=== PATIENT | male | born 1960 | race Caucasian/White ===

== ENCOUNTER → 2019-11-27 | Outpatient (CLI) | payer MEDICARE ==
[2019-11-27 12:02] LABS: ALANINE AMINOTRANSFERASE 26 U/L (0-55); ALBUMIN 4.1 GM/DL (3.2-4.5); ALKALINE PHOSPHATASE 82 U/L (40-136); BILIRUBIN,TOTAL 0.2 MG/DL (0.1-1.0); BUN/CREATININE RATIO 20; CALCIUM 9.3 MG/DL (8.5-10.1); CARBON DIOXIDE 22 MMOL/L (21-32); CHLORIDE 107 MMOL/L (98-107); CREATININE SERUM 0.93 MG/DL (0.60-1.30); GFR ESTIMATED > 60; GLUCOSE 83 MG/DL (70-105); POTASSIUM 4.2 MMOL/L (3.6-5.0); SODIUM 141 MMOL/L (135-145); TOTAL PROTEIN 7.6 GM/DL (6.4-8.2)
--- NOTE | 2019-11-27 16:27 | Diagnostic Imaging Report ---
EXAMINATION: Right foot radiographs, 3 views. COMPARISON: None. HISTORY: 59-year-old male, right foot ulcer. FINDINGS: There is a large normal variant os trigonum. There are vascular related calcifications. There is no identified tibiotalar joint effusion. There is a tiny calcaneal heel spur. There is no identified radiopaque foreign body. There is no cortical or aggressive bone destruction. There is no identified acute fracture. The joint spaces are well preserved. There is a normal variant os navicularis. IMPRESSION: 1. No radiographic evidence of osteomyelitis or other acute osseous abnormality. 2. No identified radiopaque foreign body. Dictated by: Dictated on workstation # [id number]
== END ==
LOC: RAD 11:22
PROVIDERS: ATTEND Surgery
DX: E11.621 Type 2 diabetes mellitus with foot ulcer (principal); E11.42 Type 2 diabetes mellitus with diabetic polyneuropathy; I70.235 Atherosclerosis of native arteries of right leg with ulceration of other part of foot; L97.512 Non-pressure chronic ulcer of other part of right foot with fat layer exposed; T65.222A Toxic effect of tobacco cigarettes, intentional self-harm, initial encounter; F17.218 Nicotine dependence, cigarettes, with other nicotine-induced disorders
CPT/HCPCS: 36415; 73630; 80053

== ENCOUNTER → 2019-11-27 | Outpatient (CLI) | payer MEDICARE | LOC: WOUNDCARE 08:10 | PROVIDERS: ATTEND Surgery | DX: E11.621 Type 2 diabetes mellitus with foot ulcer (principal); E11.42 Type 2 diabetes mellitus with diabetic polyneuropathy; L97.512 Non-pressure chronic ulcer of other part of right foot with fat layer exposed; I70.235 Atherosclerosis of native arteries of right leg with ulceration of other part of foot; T65.222A Toxic effect of tobacco cigarettes, intentional self-harm, initial encounter; F17.218 Nicotine dependence, cigarettes, with other nicotine-induced disorders | CPT/HCPCS: 11042; 87070; 87075; 87077; 87186; 87205; G0463 ==

== ENCOUNTER → 2019-12-04 | Outpatient (CLI) | payer MEDICARE | LOC: WOUNDCARE 08:28 | PROVIDERS: ATTEND Surgery | DX: L97.512 Non-pressure chronic ulcer of other part of right foot with fat layer exposed (principal); E11.621 Type 2 diabetes mellitus with foot ulcer; E11.52 Type 2 diabetes mellitus with diabetic peripheral angiopathy with gangrene; E11.42 Type 2 diabetes mellitus with diabetic polyneuropathy; T65.222A Toxic effect of tobacco cigarettes, intentional self-harm, initial encounter; F17.218 Nicotine dependence, cigarettes, with other nicotine-induced disorders | CPT/HCPCS: 11042; A6260; G0463 ==

== ENCOUNTER → 2019-12-11 | Outpatient (CLI) | payer MEDICARE | LOC: WOUNDCARE 09:52 | PROVIDERS: ATTEND Surgery | DX: L97.512 Non-pressure chronic ulcer of other part of right foot with fat layer exposed (principal); E11.621 Type 2 diabetes mellitus with foot ulcer; E11.42 Type 2 diabetes mellitus with diabetic polyneuropathy; T65.222A Toxic effect of tobacco cigarettes, intentional self-harm, initial encounter; F17.218 Nicotine dependence, cigarettes, with other nicotine-induced disorders | CPT/HCPCS: 11042; G0463 ==

== ENCOUNTER → 2019-12-18 | Outpatient (CLI) | payer MEDICARE | LOC: WOUNDCARE 09:48 | PROVIDERS: ATTEND Surgery | DX: E11.621 Type 2 diabetes mellitus with foot ulcer (principal); E11.42 Type 2 diabetes mellitus with diabetic polyneuropathy; L97.512 Non-pressure chronic ulcer of other part of right foot with fat layer exposed; T65.222A Toxic effect of tobacco cigarettes, intentional self-harm, initial encounter; F17.218 Nicotine dependence, cigarettes, with other nicotine-induced disorders | CPT/HCPCS: 99212 ==

== ENCOUNTER → 2020-02-11 | Outpatient (CLI) | payer MEDICARE | LOC: WOUNDCARE 13:53 | PROVIDERS: ATTEND Surgery | DX: E11.621 Type 2 diabetes mellitus with foot ulcer (principal); E11.42 Type 2 diabetes mellitus with diabetic polyneuropathy; T65.222D Toxic effect of tobacco cigarettes, intentional self-harm, subsequent encounter; L97.512 Non-pressure chronic ulcer of other part of right foot with fat layer exposed; F17.218 Nicotine dependence, cigarettes, with other nicotine-induced disorders | CPT/HCPCS: 11042; A6197; G0463 ==

== ENCOUNTER → 2020-02-18 | Outpatient (CLI) | payer MEDICARE | LOC: WOUNDCARE 11:16 | PROVIDERS: ATTEND Surgery | DX: E11.621 Type 2 diabetes mellitus with foot ulcer (principal); E11.42 Type 2 diabetes mellitus with diabetic polyneuropathy; I96 Gangrene, not elsewhere classified; L97.512 Non-pressure chronic ulcer of other part of right foot with fat layer exposed; T65.222D Toxic effect of tobacco cigarettes, intentional self-harm, subsequent encounter; F17.218 Nicotine dependence, cigarettes, with other nicotine-induced disorders | CPT/HCPCS: 11042; G0463 ==

== ENCOUNTER → 2020-02-25 | Outpatient (CLI) | payer MEDICARE | LOC: WOUNDCARE 10:48 | PROVIDERS: ATTEND Surgery | DX: E11.42 Type 2 diabetes mellitus with diabetic polyneuropathy (principal); E11.621 Type 2 diabetes mellitus with foot ulcer; I96 Gangrene, not elsewhere classified; L97.512 Non-pressure chronic ulcer of other part of right foot with fat layer exposed; T65.222D Toxic effect of tobacco cigarettes, intentional self-harm, subsequent encounter; F17.218 Nicotine dependence, cigarettes, with other nicotine-induced disorders | CPT/HCPCS: 11042; G0463 ==

== ENCOUNTER → 2020-03-03 | Outpatient (CLI) | payer MEDICARE | LOC: WOUNDCARE 11:11 | PROVIDERS: ATTEND Surgery | DX: L97.512 Non-pressure chronic ulcer of other part of right foot with fat layer exposed (principal); E11.621 Type 2 diabetes mellitus with foot ulcer; E11.42 Type 2 diabetes mellitus with diabetic polyneuropathy; F17.218 Nicotine dependence, cigarettes, with other nicotine-induced disorders; T65.222A Toxic effect of tobacco cigarettes, intentional self-harm, initial encounter | CPT/HCPCS: 11042; G0463 ==

== ENCOUNTER → 2020-03-10 | Outpatient (CLI) | payer MEDICARE ==
[~2020-03-10] MED LIST: ACHD5005 PO; ALPR0.5T7 PO; ATOR40TA70 PO; FAMO20TA3 PO; GABA300C PO; INSU100I51 SQ; INSU200I4 SQ; LIRA0.6P SQ; METF-399 PO; PARO40TA3 PO
== END ==
LOC: WOUNDCARE 10:45
PROVIDERS: ATTEND Orthopaedic Surgery Hand Surgery
DX: E11.621 Type 2 diabetes mellitus with foot ulcer (principal); E11.42 Type 2 diabetes mellitus with diabetic polyneuropathy; L97.512 Non-pressure chronic ulcer of other part of right foot with fat layer exposed; T65.222D Toxic effect of tobacco cigarettes, intentional self-harm, subsequent encounter; E11.52 Type 2 diabetes mellitus with diabetic peripheral angiopathy with gangrene; F17.218 Nicotine dependence, cigarettes, with other nicotine-induced disorders
CPT/HCPCS: 11042; A6197; G0463

== ENCOUNTER 2020-03-11 08:45 | Outpatient (RCR) | payer MEDICARE ==
[~2020-03-11] VITALS: Ht 175.3 cm; Wt 116.7 kg
[2020-03-11] MEDS ORDERED: ALPR0.5T7 PO (09:49)
[2020-03-11] MEDS ORDERED: METF-399 PO (09:49)
[2020-03-11] MEDS ORDERED: PARO40TA3 PO (09:49)
[2020-03-11] MEDS ORDERED: GABA300C PO (09:49)
[2020-03-11] MEDS ORDERED: LIRA0.6P SQ (09:49)
[2020-03-11] MEDS ORDERED: INSU100I51 SQ (09:49)
[2020-03-11] MEDS ORDERED: FAMO20TA3 PO (09:49)
[2020-03-11] MEDS ORDERED: ACHD5005 PO (09:49)
[2020-03-11] MEDS ORDERED: ATOR40TA70 PO (09:49)
[2020-03-11] MEDS ORDERED: INSU200I4 SQ (09:49)
== END 2020-03-11 15:00 | disposition home or self-care (01) ==
LOC: PREOP 08:45
PROVIDERS: ATTEND Orthopaedic Surgery
DX: Z01.818 Encounter for other preprocedural examination (principal); S46.012A Strain of muscle(s) and tendon(s) of the rotator cuff of left shoulder, initial encounter

== ENCOUNTER 2020-03-17 06:49 | Day surgery (SDC) | payer OTHER, MEDICARE ==
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
[2020-03-17] VITALS (11 sets, daily range): BP systolic 88–153; BP diastolic 48–82
[~2020-03-17] VITALS: Ht 175.3 cm; Wt 116.7 kg
[2020-03-17] MEDS ORDERED: morphine PF (DURAMORPH) 10 MG/10 ML AMP ONE (07:01)
[2020-03-17] MEDS ORDERED: BUPIVACAINE 0.25% 30 ML (SENSORCAINE) VIAL ONE ×2 (07:02→07:45)
[2020-03-17] MEDS: LACTATED RINGERS 1,000 ML IV PRN ×2 (07:10→09:06)
[2020-03-17] MEDS ORDERED: oxyCODONE/APAP 5/325MG (PERCOCET 5) TABLET PO PRN (07:15)
[2020-03-17] MEDS ORDERED: ceFAZolin INJECTION 1,000 MG in WATER (STERILE) FOR INJECTION 10 ML IV ONE (07:15)
[2020-03-17] MEDS ORDERED: WATER (STERILE) FOR INJECTION 10 ML ONE (07:22)
[2020-03-17] MEDS ORDERED: ceFAZolin INJECTION 1,000 MG ONE (07:22)
--- NOTE | 2020-03-17 07:23 | Progress Note-Pre Operative ---
Pre-Operative Progress Note H&P Reviewed The H&P was reviewed, patient examined and no changes noted. Date Seen by Provider: Mar 17, 2020 Time Seen by Provider: 07:11 Date H&P Reviewed: Mar 17, 2020 Time H&P Reviewed: 07:10 Pre-Operative Diagnosis: left rotator cuff tear TARA PACK MD Mar 17, 2020 07:23
--- NOTE | 2020-03-17 07:24 | Progress Note-Post Operative ---
Post-Operative Progess Note Surgeon (s)/Respiratory Tech (s) Surgeon TARA PACK MD Respiratory Tech: Christopher Kothari Pre-Operative Diagnosis left rotator cuff tear Post-Operative Diagnosis left rotator cuff tear and SLAP Procedure & Operative Findings Date of Procedure 03/17/20 Procedure Performed/Findings left shoulder arthroscopic biceps tenotomy, acromioplasty and open rotator cuff repair Anesthesia Type GETA Estimated Blood Loss Estimated blood loss (mL): minimal Specimens/Packing Specimens Removed none Packing: none TARA PACK MD Mar 17, 2020 07:24
[2020-03-17] MEDS ORDERED: CATHETER FLUSH 10 ML SYR IV PRN (07:30)
[2020-03-17] MEDS ORDERED: SEVOFLURANE (ULTANE) 15 ML INHAL SOLN ONE (07:38)
[2020-03-17] MEDS ORDERED: NEOSTIGMINE 3 MG/3 ML VIAL ONE (07:38)
[2020-03-17] MEDS ORDERED: proPOfol 200 MG/20 ML (DIPRIVAN) VIAL IV ONE (07:38)
[2020-03-17] MEDS ORDERED: ONDANSETRON 4 MG/2 ML (SDV) Z0FRAN ONE (07:38)
[2020-03-17] MEDS ORDERED: LIDOCAINE PF 2% 5 ML (XYLOCAINE) VIAL ONE (07:38)
[2020-03-17] MEDS ORDERED: ROCURONIUM 10 MG/ML 5 ML SYRINGE IV ONE (07:38)
[2020-03-17] MEDS ORDERED: GLYCOPYRROLATE 0.2 MG/ML (ROBINUL) 2 ML VIAL ONE (07:38)
[2020-03-17] MEDS ORDERED: MIDAZOLAM 2 MG/2 ML (VERSED) VIAL ONE (07:39)
[2020-03-17] MEDS ORDERED: fentaNYL INJECTION 100 MCG/2 ML AMP ONE (07:39)
[2020-03-17] MEDS ORDERED: morphine INJ 10 MG/ML 1ML (SYR OR VIAL) IVP ONE (09:15)
[2020-03-17] MEDS ORDERED: MEPERIDINE (DEMEROL) INJ 50 MG/ML IVP ONE (09:15)
[2020-03-17] MEDS ORDERED: ONDANSETRON 4 MG/2 ML (SDV) Z0FRAN IVP PRN (09:15)
[2020-03-17] MEDS ORDERED: fentaNYL INJECTION 100 MCG/2 ML AMP IVP ONE (09:15)
[2020-03-17] MEDS ORDERED: SUCCINYLCHOLINE INJ 100 MG/5 ML SYR/VIAL ONE (09:20)
[2020-03-17] MEDS ORDERED: PHENYLEPHRINE 100 MCG/ML 10 ML (ANESTHESIA) SYR ONE (09:20)
[2020-03-17] MEDS ORDERED: OXYC-471 PO (11:16)
--- NOTE | 2020-03-17 12:02 | Anesthesia-General Post-Op ---
General Patient Condition Mental Status/LOC: Same as Preop Cardiovascular: Satisfactory Nausea/Vomiting: Absent Respiratory: Satisfactory Pain: Controlled Complications: Absent Post Op Complications Complications None Follow Up Care/Instructions Patient Instructions None needed. Anesthesia/Patient Condition Patient Condition Patient is doing well, no complaints, stable vital signs, no apparent adverse anesthesia problems. No complications reported per nursing. AYANA GAFFNEY CRNA Mar 17, 2020 12:02
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
== END 2020-03-17 12:10 | disposition home or self-care (01) ==
LOC: SDC 06:49
PROVIDERS: ATTEND Orthopaedic Surgery
DX: S43.432A Superior glenoid labrum lesion of left shoulder, initial encounter (principal); M75.102 Unspecified rotator cuff tear or rupture of left shoulder, not specified as traumatic; E78.5 Hyperlipidemia, unspecified; E11.42 Type 2 diabetes mellitus with diabetic polyneuropathy; E11.622 Type 2 diabetes mellitus with other skin ulcer; F17.210 Nicotine dependence, cigarettes, uncomplicated; Z79.84 Long term (current) use of oral hypoglycemic drugs; Z79.899 Other long term (current) drug therapy
CPT/HCPCS: 23412; 29822; 29826; 82962; 87081; C1713

== ENCOUNTER → 2020-03-26 | Outpatient (CLI) | payer MEDICARE ==
[~2020-03-26] MED LIST changes: +OXYC-471 PO
== END ==
LOC: WOUNDCARE 11:31
PROVIDERS: ATTEND Surgery
DX: E11.621 Type 2 diabetes mellitus with foot ulcer (principal); E11.42 Type 2 diabetes mellitus with diabetic polyneuropathy; I96 Gangrene, not elsewhere classified; L97.512 Non-pressure chronic ulcer of other part of right foot with fat layer exposed; T65.222D Toxic effect of tobacco cigarettes, intentional self-harm, subsequent encounter; F17.218 Nicotine dependence, cigarettes, with other nicotine-induced disorders
CPT/HCPCS: 11042; G0463

== ENCOUNTER → 2020-08-09 | Outpatient (CLI) | payer MEDICARE ==
[~2020-08-09] MED LIST changes: -OXYC-471 PO; +OXYC1TAB11 PO
--- NOTE | 2020-08-09 11:09 | Diagnostic Imaging Report ---
INDICATION: Neck injury from a fall. TECHNIQUE: AP, lateral, and oblique views of the cervical spine were obtained. FINDINGS: The odontoid is intact. The atlantoaxial relationships appear normal. The vertebral body heights and alignment appear normal. The neuroforamina appear widely patent. The intervertebral disc spaces are well-maintained. There is no fracture or prevertebral soft tissue swelling. IMPRESSION: Unremarkable cervical spine. Dictated by: Dictated on workstation # [id number]
== END ==
LOC: RAD FS 10:40
PROVIDERS: ATTEND Nurse Practitioner
DX: S19.9XXA Unspecified injury of neck, initial encounter (principal); W19.XXXA Unspecified fall, initial encounter
CPT/HCPCS: 72050

== ENCOUNTER 2020-10-10 13:02 | Emergency (ER) | payer MEDICARE ==
[~2020-10-10] VITALS: Ht 172 cm; Wt 113.0 kg
[2020-10-10] MEDS ORDERED: DOXYCYCLINE 100 MG (VIBRAMYCIN) TABLET PO SCH (13:30)
[2020-10-10] MEDS ORDERED: CIPROFLOXACIN 500 MG (CIPRO) TABLET PO SCH (13:30)
[2020-10-10] MEDS ORDERED: LIDOCAINE 1% INJ 20 ML 20 ML VIAL INJ ONE (13:30)
--- NOTE | 2020-10-10 13:39 | ED Integumentary General ---
General Chief Complaint: Skin/Wound Problems Stated Complaint: RIGHT FOOT WOUND/PAIN/INFECTION Nursing Triage Note: ARRIVED VIA AMB TO ROOM 08. COMPLAINS OF POSSIBLE RIGHT FOOT INFECTION. Source: patient Exam Limitations: no limitations History of Present Illness Date Seen by Provider: Oct 10, 2020 Time Seen by Provider: 13:36 Initial Comments To ER with complaints of concern for infection to the plantar surface right foot laterally. He has a callus to this area for 2 weeks. He is diabetic. He states that his sugars are well controlled. He noticed a callus about 2 weeks ago and his tried to scrape it off. She noticed there to be a rock embedded within his foot that was removed. He now has an ulcerated area and intense pain. Timing/Duration: constant Severity: moderate Associated Symptoms: denies symptoms Allergies and Home Medications Allergies Coded Allergies: No Known Drug Allergies (Unverified , 03/11/20) Home Medications Alprazolam 0.5 Mg Tablet, 0.5 MG PO HS, (Reported) Atorvastatin Calcium 40 Mg Tablet, 40 MG PO DAILY, (Reported) Ciprofloxacin HCl 250 Mg Tablet, 250 MG PO BID Prescribed by: KERRIE ESTRADA on 10/10/20 1414 Doxycycline Hyclate 100 Mg Tablet, 100 MG PO BID Prescribed by: KERRIE ESTRADA on 10/10/20 1414 Famotidine 20 Mg Tablet, 20 MG PO BID, (Reported) Gabapentin 300 Mg Capsule, 900 MG PO TID, (Reported) Insulin Degludec 200 Unit/1 Ml Insuln.pen, 100 UNIT SQ DAILY, (Reported) Insulin Regular, Human 100 Unit/1 Ml Insuln.pen, 30 UNIT SQ ACHS, (Reported) Liraglutide 0.6 Mg/0.1 Ml Pen.injctr, 1.2 MG SQ DAILY, (Reported) Metformin HCl 1,000 Mg Tablet, 1,000 MG PO BID, (Reported) Oxycodone HCl/Acetaminophen 1 Each Tablet, 1 EACH PO Q4H PRN for PAIN-SEVERE Prescribed by: SHIRA BIRD on 03/17/20 1116 Paroxetine HCl 40 Mg Tablet, 40 MG PO DAILY, (Reported) Patient Home Medication List Home Medication List Reviewed: Yes Review of Systems Review of Systems Constitutional: see HPI EENTM: see HPI Respiratory: no symptoms reported Cardiovascular: no symptoms reported Genitourinary: no symptoms reported Musculoskeletal: no symptoms reported Skin: no symptoms reported Psychiatric/Neurological: No Symptoms Reported Endocrine: No Symptoms Reported Hematologic/Lymphatic: No Symptoms Reported Past Wkrvpfc-Yzefas-Aqizbu Hx Seasonal Allergies Seasonal Allergies: Yes Past Medical History Surgeries: Yes (bilat elbows, bilat CTR, knee scope, ) Coronary Stent Respiratory: Yes Sleep Apnea Currently Using CPAP: Yes Currently Using BIPAP: No Cardiac: Yes (stents x6 last 2016) High Cholesterol Neurological: Yes Neuropathy Genitourinary: No Gastrointestinal: Yes Gastroesophageal Reflux Musculoskeletal: Yes (L shoulder rotator cuff tear, joint pain) Degenerate Disk Disease, Arthritis Endocrine: Yes Diabetes, Insulin dep HEENT: Yes (glasses, dentures) Cancer: No Psychosocial: Yes Sleep Difficulties, Anxiety, Bipolar, Depression Integumentary: Yes (r foot little toe with diabetic ulcer) Blood Disorders: No Physical Exam Vital Signs Vital Signs - First Documented 10/10/20 13:10 Temp 36.7 Pulse 80 Resp 16 B/P (MAP) 180/96 (124) Pulse Ox 96 O2 Delivery Room Air Capillary Refill : Less Than 3 Seconds General Appearance: WD/WN, no apparent distress Respiratory: no respiratory distress, no accessory muscle use Gastrointestinal: normal bowel sounds, non tender, soft Extremities: normal range of motion, non-tender, other (I cannot palpate a dorsalis pedis pulse but the toes have brisk capillary refill normal color the foot is warm and the posterior tibial pulse is +1.) Neurologic/Psychiatric: alert, normal mood/affect, oriented x 3 Skin: normal color, warm/dry Skin Problem Location: other (To the plantar surface over the fourth and fifth distal metatarsal there is a callused area with central ulcerated area that goes about a centimeter deep) Progress/Results/Core Measures Results/Orders Lab Results Laboratory Tests Test 10/10/20 14:16 Range/Units White Blood Count 10.2 4.3-11.0 10^3/uL Red Blood Count 5.05 4.30-5.52 10^6/uL Hemoglobin 15.0 13.3-17.7 g/dL Hematocrit 47 40-54 % Mean Corpuscular Volume 92 80-99 fL Mean Corpuscular Hemoglobin 30 25-34 pg Mean Corpuscular Hemoglobin Concent 32 32-36 g/dL Red Cell Distribution Width 14.0 10.0-14.5 % Platelet Count 292 130-400 10^3/uL Mean Platelet Volume 9.1 9.0-12.2 fL Immature Granulocyte % (Auto) 0 % Neutrophils (%) (Auto) 60 42-75 % Lymphocytes (%) (Auto) 32 12-44 % Monocytes (%) (Auto) 6 0-12 % Eosinophils (%) (Auto) 2 0-10 % Basophils (%) (Auto) 1 0-10 % Neutrophils # (Auto) 6.1 1.8-7.8 10^3/uL Lymphocytes # (Auto) 3.2 1.0-4.0 10^3/uL Monocytes # (Auto) 0.6 0.0-1.0 10^3/uL Eosinophils # (Auto) 0.2 0.0-0.3 10^3/uL Basophils # (Auto) 0.1 0.0-0.1 10^3/uL Immature Granulocyte # (Auto) 0.0 0.0-0.1 10^3/uL Sodium Level 141 135-145 MMOL/L Potassium Level 4.0 3.6-5.0 MMOL/L Chloride Level 108 H 98-107 MMOL/L Carbon Dioxide Level 21 21-32 MMOL/L Anion Gap 12 5-14 MMOL/L Blood Urea Nitrogen 29 H 7-18 MG/DL Creatinine 0.86 0.60-1.30 MG/DL Estimat Glomerular Filtration Rate 90 BUN/Creatinine Ratio 34 Glucose Level 89 70-105 MG/DL Calcium Level 9.9 8.5-10.1 MG/DL Corrected Calcium 9.7 8.5-10.1 MG/DL Total Bilirubin 0.4 0.1-1.0 MG/DL Aspartate Amino Transf (AST/SGOT) 27 5-34 U/L Alanine Aminotransferase (ALT/SGPT) 29 0-55 U/L Alkaline Phosphatase 78 40-136 U/L Total Protein 8.0 6.4-8.2 GM/DL Albumin 4.3 3.2-4.5 GM/DL My Orders Orders - KERRIE ESTRADA SAP BASIS ADMINISTRATOR Cbc With Automated Diff (10/10/20 13:22) Erythrocyte Sedimentation Rate (10/10/20 13:22) Comprehensive Metabolic Panel (10/10/20 13:22) Wound Culture (10/10/20 13:22) Foot, Right, 3 View (10/10/20 13:22) Doxycycline Hyclate Tablet (Vibramycin T (10/10/20 13:30) Ciprofloxacin Tablet (Cipro Tablet) (10/10/20 13:30) Lidocaine 1% Inj 20 Ml (Xylocaine 1% Inj (10/10/20 13:30) Medications Given in ED Current Medications Medications Dose Ordered Sig/Hector Route Start Time Stop Time Status Last Admin Dose Admin Lidocaine HCl 20 ml ONCE ONCE INJ 10/10/20 13:30 10/10/20 13:31 DC 10/10/20 13:30 20 ML Vital Signs/I&O 10/10/20 13:10 Temp 36.7 Pulse 80 Resp 16 B/P (MAP) 180/96 (124) Pulse Ox 96 O2 Delivery Room Air Blood Pressure Mean: 124 Diagnostic Imaging Diagonstic Imaging: Xray Comments No bony erosion no fracture no foreign body Reviewed: Reviewed by Me Departure Communication (Admissions) The callus was removed with 10 blade scalpel Impression Primary Impression: Diabetic ulcer of foot with fat layer exposed Disposition: HOME, SELF-CARE Condition: Stable Departure-Patient Inst. Decision time for Depature: 14:12 Referrals: MARCIA SPRINGER MD (PCP) Primary Care Physician TARA DORANTES MD Patient Instructions: Diabetic Foot Ulcer (DC) Add. Discharge Instructions: 1. Call Dr. Dorantes from wound care Sunday morning. Keep this covered with a gauze dressing. Antibiotics as directed. All discharge instructions reviewed with patient and/or family. Voiced understanding. Scripts Ciprofloxacin HCl (Ciprofloxacin HCl) 250 Mg Tablet 250 MG PO BID, #14 TAB Prov: KERRIE ESTRADA SAP BASIS ADMINISTRATOR 10/10/20 Doxycycline Hyclate (Doxycycline Hyclate) 100 Mg Tablet 100 MG PO BID, #20 TAB 0 Refills Prov: KERRIE ESTRADA SAP BASIS ADMINISTRATOR 10/10/20 KERRIE ESTRADA SAP BASIS ADMINISTRATOR Oct 10, 2020 13:39
[2020-10-10] MEDS ORDERED: CIPR250T3 PO (14:14)
[2020-10-10] MEDS ORDERED: DOXY100T2 PO (14:14)
--- NOTE | 2020-10-10 14:29 | Diagnostic Imaging Report ---
Clinical indications: Patient right foot pain. Possible foot infection. EXAM: X-ray right foot, 3 views. COMPARISON: X-ray right foot dated 11/27/2019. FINDINGS: There is no acute fracture or dislocation. There appears to be a soft tissue wound defect involving the soft tissues adjacent plantar aspect of the MTP joint region seen on lateral view. This finding is new compared to prior study. There is no radiodense foreign object. There is no bony erosive or destructive process. There is hypertrophic calcaneal spur at the plantar attachment again noted. Vascular calcifications are seen. IMPRESSION: 1: There is no acute fracture or dislocation. 2: There is interval development of soft tissue thickening and suspected wound involving the soft tissue adjacent to plantar aspect of the MTP region seen on lateral view. There is no radiodense foreign object. There is no adjacent bony erosive or destructive process. Dictated by: Dictated on workstation # [id number]
[2020-10-10 14:31] LABS: BASOPHILS # (AUTO) 0.1 10^3/uL (0.0-0.1); BASOPHILS % (AUTO) 1 % (0-10); EOSINOPHILS # (AUTO) 0.2 10^3/uL (0.0-0.3); EOSINOPHILS % (AUTO) 2 % (0-10); HEMATOCRIT 47 % (40-54); LYMPHOCYTES # (AUTO) 3.2 10^3/uL (1.0-4.0); LYMPHOCYTES % (AUTO) 32 % (12-44); MEAN CORPUSCULAR HEMOGLOBIN 30 pg (25-34); MEAN CORPUSCULAR HGB CONC 32 g/dL (32-36); MEAN CORPUSCULAR VOLUME 92 fL (80-99); MEAN PLATELET VOLUME 9.1 fL (9.0-12.2); MONOCYTES # (AUTO) 0.6 10^3/uL (0.0-1.0); MONOCYTES % (AUTO) 6 % (0-12); NEUTROPHILS # (AUTO) 6.1 10^3/uL (1.8-7.8); NEUTROPHILS % (AUTO) 60 % (42-75); PLATELET COUNT 292 10^3/uL (130-400); WHITE BLOOD COUNT 10.2 10^3/uL (4.3-11.0)
[2020-10-10 14:43] LABS: ALBUMIN 4.3 GM/DL (3.2-4.5)
[2020-10-10 14:44] LABS: CALCIUM 9.9 MG/DL (8.5-10.1)
[2020-10-10 14:47] LABS: BILIRUBIN,TOTAL 0.4 MG/DL (0.1-1.0)
[2020-10-10 14:49] LABS: CREATININE SERUM 0.86 MG/DL (0.60-1.30)
[2020-10-10 14:56] LABS: ERYTHROCYTE SEDIMENTATION RATE 12 MM/HR (0-30)
[2020-10-10] MEDS ORDERED: ACHD5005 PO (14:58)
[2020-10-10 15:01] VITALS: BP 180/96
== END 2020-10-10 15:01 | disposition home or self-care (01) ==
LOC: EDUNIT# 13:02 → ER 13:06
DX: E11.621 Type 2 diabetes mellitus with foot ulcer (principal); G47.30 Sleep apnea, unspecified; K21.9 Gastro-esophageal reflux disease without esophagitis; E78.00 Pure hypercholesterolemia, unspecified; F32.9 Major depressive disorder, single episode, unspecified; F41.9 Anxiety disorder, unspecified; Z79.899 Other long term (current) drug therapy; Z79.4 Long term (current) use of insulin
CPT/HCPCS: 36415; 73630; 80053; 85025; 85652

== ENCOUNTER → 2020-10-15 | Outpatient (CLI) | payer MEDICARE ==
[~2020-10-15] MED LIST changes: +CIPR250T3 PO; +DOXY100T2 PO
== END ==
LOC: WOUNDCARE 09:25
PROVIDERS: ATTEND Surgery
DX: E11.621 Type 2 diabetes mellitus with foot ulcer (principal); E11.42 Type 2 diabetes mellitus with diabetic polyneuropathy; L97.512 Non-pressure chronic ulcer of other part of right foot with fat layer exposed; I70.235 Atherosclerosis of native arteries of right leg with ulceration of other part of foot
CPT/HCPCS: 11042; 83036; A6197; G0463; 36415

== ENCOUNTER → 2020-10-21 | Outpatient (CLI) | payer MEDICARE | LOC: WOUNDCARE 14:27 | PROVIDERS: ATTEND Surgery | DX: E11.621 Type 2 diabetes mellitus with foot ulcer (principal); I96 Gangrene, not elsewhere classified; E11.42 Type 2 diabetes mellitus with diabetic polyneuropathy; L97.512 Non-pressure chronic ulcer of other part of right foot with fat layer exposed; I70.235 Atherosclerosis of native arteries of right leg with ulceration of other part of foot | CPT/HCPCS: 11042; G0463 ==

== ENCOUNTER → 2020-11-16 | Outpatient (CLI) | payer MEDICARE | LOC: WOUNDCARE 13:24 | PROVIDERS: ATTEND Surgery | DX: E11.621 Type 2 diabetes mellitus with foot ulcer (principal); E11.42 Type 2 diabetes mellitus with diabetic polyneuropathy; L97.512 Non-pressure chronic ulcer of other part of right foot with fat layer exposed; I70.235 Atherosclerosis of native arteries of right leg with ulceration of other part of foot; E11.52 Type 2 diabetes mellitus with diabetic peripheral angiopathy with gangrene | CPT/HCPCS: 11042; G0463; L4360 ==

== ENCOUNTER → 2020-11-23 | Outpatient (CLI) | payer MEDICARE | LOC: WOUNDCARE 12:27 | PROVIDERS: ATTEND Surgery | DX: E11.621 Type 2 diabetes mellitus with foot ulcer (principal); I96 Gangrene, not elsewhere classified; E11.42 Type 2 diabetes mellitus with diabetic polyneuropathy; L97.512 Non-pressure chronic ulcer of other part of right foot with fat layer exposed | CPT/HCPCS: 11042; G0463 ==

== ENCOUNTER → 2020-11-30 | Outpatient (CLI) | payer MEDICARE | LOC: WOUNDCARE 12:00 | PROVIDERS: ATTEND Surgery | DX: E11.621 Type 2 diabetes mellitus with foot ulcer (principal); E11.42 Type 2 diabetes mellitus with diabetic polyneuropathy; L97.512 Non-pressure chronic ulcer of other part of right foot with fat layer exposed | CPT/HCPCS: 99212 ==

== ENCOUNTER → 2021-01-25 | Outpatient (CLI) | payer MEDICARE | LOC: WOUNDCARE 08:53 | PROVIDERS: ATTEND Family Medicine | DX: E11.621 Type 2 diabetes mellitus with foot ulcer (principal); L97.512 Non-pressure chronic ulcer of other part of right foot with fat layer exposed; I70.235 Atherosclerosis of native arteries of right leg with ulceration of other part of foot; L03.115 Cellulitis of right lower limb; M20.41 Other hammer toe(s) (acquired), right foot; I25.10 Atherosclerotic heart disease of native coronary artery without angina pectoris; E66.01 Morbid (severe) obesity due to excess calories | CPT/HCPCS: A6197; G0463; 99214 ==

== ENCOUNTER → 2021-02-02 | Outpatient (CLI) | payer MEDICARE | LOC: WOUNDCARE 14:57 | PROVIDERS: ATTEND Family Medicine | DX: I25.10 Atherosclerotic heart disease of native coronary artery without angina pectoris (principal); M20.41 Other hammer toe(s) (acquired), right foot; E66.01 Morbid (severe) obesity due to excess calories; Z68.38 Body mass index [BMI] 38.0-38.9, adult | CPT/HCPCS: 99212 ==

== ENCOUNTER → 2021-09-01 | Outpatient (CLI) | payer MEDICARE ==
--- NOTE | 2021-09-01 11:39 | Diagnostic Imaging Report ---
Indication: Right knee pain. Time of Exam: 11:32 AM 3 views of the right knee were obtained. There is a metallic fixation device within the distal femur. There appear to be postop changes from ACL repair. Alignment is normal. There is medial and patellofemoral compartmental degenerative change. No fracture or dislocation is identified. There does appear to be a small joint effusion. Impression: Small joint effusion and postoperative changes with some degenerative changes. No acute bony abnormality is detected. Dictated by: Dictated on workstation # [id number]
== END ==
LOC: RAD FS 11:19
PROVIDERS: ATTEND Nurse Practitioner
DX: M17.11 Unilateral primary osteoarthritis, right knee (principal)
CPT/HCPCS: 73562

== ENCOUNTER 2022-08-07 05:36 | Outpatient (CLI) | payer MEDICARE ==
[~2022-08-07] VITALS: Ht 172.7 cm; Wt 109.0 kg
[2022-08-07] MEDS ORDERED: EMPA25TA PO (12:39)
[2022-08-07] MEDS ORDERED: MELO7.5T46 PO (12:39)
[2022-08-07] MEDS ORDERED: NITR0.4T42 SL (12:39)
[2022-08-07] MEDS ORDERED: ASPI-999 PO (12:39)
[2022-08-07] MEDS ORDERED: BUPR-42 PO (12:39)
[2022-08-07] MEDS ORDERED: TRAZ150T72 PO (12:39)
== END 2022-08-07 12:45 | disposition home or self-care (01) ==
LOC: PREOP 05:36
PROVIDERS: ATTEND Orthopaedic Surgery
DX: Z01.818 Encounter for other preprocedural examination (principal)

== ENCOUNTER 2022-08-09 07:45 | Day surgery (SDC) | payer MEDICARE ==
--- NOTE | 2022-08-08 08:19 | HISTORY AND PHYSICAL ---
This will be for outpatient surgery on 08/09/2022 for right rotator cuff repair. HISTORY: The patient is a 62-year-old right-hand dominant gentleman with progressively worsening right shoulder pain and weakness. He underwent an MRI, which revealed a near full-thickness supraspinatus tear as no treatment with injections, anti-inflammatories and rest without relief. Due to functional impairment and failure to improve with conservative measures, the patient elected to proceed with surgical intervention. REVIEW OF SYSTEMS: No chest pain, no shortness of breath. No dysuria. PAST MEDICAL HISTORY: Diabetes mellitus, hyperlipidemia, polyneuropathy, diabetic ulcers, coronary artery disease. PAST SURGICAL HISTORY: Cataracts, coronary stent placement, right knee, bilateral carpal tunnels, left rotator cuff repair. FAMILY HISTORY: Noncontributory. PRIMARY CARE PROVIDER: Radhika Valenzuela. MEDICATIONS: NovoLog, cyclobenzaprine, trazodone, meloxicam, atorvastatin, paroxetine, famotidine, Cialis, gabapentin, Victoza, metformin, alprazolam. ALLERGIES: No known drug allergies. SOCIAL HISTORY: The patient smokes half pack of cigarettes a day. Denies alcohol use. PHYSICAL EXAMINATION: GENERAL: The patient is well-developed, well-nourished, in no acute distress. HEENT: Normocephalic, atraumatic. Pupils equal, round, reactive to light. Oropharynx is clear. NECK: Supple. No lymphadenopathy. LUNGS: Clear to auscultation bilaterally. HEART: Regular rate and rhythm. ABDOMEN: Soft, nontender, nondistended. EXTREMITIES: The right shoulder demonstrates weakness with abduction and external rotation. He has symmetric forward elevation, external and internal rotation, but a positive Neer's and positive Hawkin sign. IMPRESSION: Right shoulder rotator cuff tear. PLAN: Right shoulder arthroscopy, acromioplasty, possible biceps tenotomy and open rotator cuff repair. The risks, benefits, options, ramifications and recovery have been discussed at length with the patient. He understands and wishes to proceed. This will be for outpatient surgery on 08/09/2022. Job ID: [id number] DocumentID: [id number] Dictated Date: 08/04/2022 12:54:06 Tank Processor Date: 08/04/2022 17:31:00 Dictated By: TARA PACK MD
[~2022-08-09] VITALS: Ht 172 cm; Wt 109.0 kg
[2022-08-09] VITALS (14 sets, daily range): BP systolic 115–157; BP diastolic 55–84
[~2022-08-09 07:45] MED LIST changes: +ASPI-999 PO; +BUPR-42 PO; +EMPA25TA PO; +MELO7.5T46 PO; +NITR0.4T42 SL; +TRAZ150T72 PO
[2022-08-09] MEDS ORDERED: ceFAZolin INJECTION 2,000 MG in NS (IVPB) 50 ML IV ONE (08:00)
[2022-08-09] MEDS: LACTATED RINGERS 1,000 ML IV PRN ×2 (08:23→11:13)
[2022-08-09] MEDS ORDERED: LIDOCAINE PF 2% 5 ML (XYLOCAINE) VIAL ONE (08:37)
[2022-08-09] MEDS ORDERED: ROPIVACAINE 5MG/ML 30ML VIAL ONE (08:37)
[2022-08-09] MEDS ORDERED: MIDAZOLAM 2 MG/2 ML (VERSED) VIAL ONE (08:38)
[2022-08-09] MEDS ORDERED: morphine PF (DURAMORPH) 10 MG/10 ML AMP ONE (08:53)
[2022-08-09] MEDS ORDERED: BUPIVACAINE 0.25% 30 ML (SENSORCAINE) VIAL ONE (08:53)
[2022-08-09] MEDS ORDERED: ROCURONIUM 50 MG/5 ML (ZEMURON) VIAL IV ONE (09:09)
[2022-08-09] MEDS ORDERED: GLYCOPYRROLATE 0.2 MG/ML (ROBINUL) 2 ML VIAL ONE (09:09)
[2022-08-09] MEDS ORDERED: fentaNYL INJ 250 MCG/5 ML AMP ONE (09:09)
[2022-08-09] MEDS ORDERED: ONDANSETRON 4 MG/2 ML (SDV) Z0FRAN ONE (09:09)
[2022-08-09] MEDS ORDERED: NEOSTIGMINE (BLOXIVERZ ) 1 MG/1ML 10 ML VIAL ONE (09:09)
[2022-08-09] MEDS ORDERED: proPOfol 200 MG/20 ML (DIPRIVAN) VIAL IV ONE (09:09)
--- NOTE | 2022-08-09 09:13 | Progress Note-Pre Operative ---
Pre-Operative Progress Note Date of Available H&P: Aug 04, 2022 Date H&P Reviewed: Aug 09, 2022 Time H&P Reviewed: 09:03 Changes from last HP none Pre-Operative Diagnosis: right rotator cuff tear TARA PACK MD Aug 09, 2022 09:13
--- NOTE | 2022-08-09 09:14 | Progress Note-Post Operative ---
Post-Operative Progess Note Surgeon (s)/Photographer Aerial (s) Surgeon TARA PACK MD Photographer Aerial: Christopher Kothari Pre-Operative Diagnosis right rotator cuff tear Post-Operative Diagnosis right rotator cuff tear and labral tear Procedure & Operative Findings Date of Procedure 08/09/22 Procedure Performed/Findings right shoulder arthroscopic acromioplasty and labral debridement and open rotator cuff repair Anesthesia Type GETA Estimated Blood Loss Estimated blood loss (mL): minimal Specimens/Packing Specimens Removed none Packing: none TARA PACK MD Aug 09, 2022 09:14
[2022-08-09] MEDS ORDERED: BUPIVACAINE 0.25% 30 ML (SENSORCAINE) VIAL INJ ONE (09:45)
[2022-08-09] MEDS ORDERED: morphine PF (DURAMORPH) 10 MG/10 ML AMP INJ ONE (09:46)
[2022-08-09] MEDS ORDERED: SEVOFLURANE (ULTANE) 15 ML INHAL SOLN ONE (10:35)
[2022-08-09] MEDS ORDERED: morphine INJ 10 MG/ML 1ML (SYR OR VIAL) ONE (10:41)
[2022-08-09] MEDS ORDERED: HYDROmorphone 2 MG/ML VIAL (DILAUDID) IV ONE (10:45)
[2022-08-09] MEDS ORDERED: morphine INJ 10 MG/ML 1ML (SYR OR VIAL) IVP ONE (10:45)
[2022-08-09] MEDS ORDERED: ONDANSETRON 4 MG/2 ML (SDV) Z0FRAN IVP PRN (10:45)
[2022-08-09] MEDS: oxyCODONE/APAP 5/325MG (PERCOCET 5) TABLET PO PRN ×2 (11:31→12:06)
[2022-08-09] MEDS ORDERED: oxyCODONE/APAP 5/325MG (PERCOCET 5) TABLET PO ONE (12:15)
--- NOTE | 2022-08-09 14:11 | Anesthesia-General Post-Op ---
General Patient Condition Mental Status/LOC: Same as Preop Cardiovascular: Satisfactory Nausea/Vomiting: Absent Respiratory: Satisfactory Pain: Controlled Complications: Absent Post Op Complications Complications None Follow Up Care/Instructions Patient Instructions None needed. Anesthesia/Patient Condition Patient Condition Patient was seen this morning after the procedure and he was doing well. He did complain of shoulder pain, which is unfortunately to be expected. He had stable vital signs, no apparent adverse anesthesia problems. No complications reported per nursing. LAZARA SUTTON 14, 2023 14:11
--- NOTE | 2022-08-09 15:39 | OPERATIVE REPORT ---
DATE OF SERVICE: 08/09/2022 PREOPERATIVE DIAGNOSIS: Right chronic rotator cuff tear. POSTOPERATIVE DIAGNOSES: 1. Right chronic rotator cuff tear. 2. Right shoulder labral tear. PROCEDURES: 1. Right shoulder open rotator cuff repair. 2. Right shoulder arthroscopic labral debridement. 3. Right shoulder arthroscopic acromioplasty. SURGEON: Huy Pack MD RENTAL AGENT: Christopher Kothari, who assisted throughout the procedure and closed the incisions. ANESTHESIA: General endotracheal by Dr. Guzmán. ESTIMATED BLOOD LOSS: Minimal. DRAINS: None. COMPLICATIONS: None. POSTOPERATIVE PLAN: Sling wear and passive range of motion for 4 weeks. The patient was transported to the recovery room awake and in stable condition. STATEMENT OF MEDICAL NECESSITY: The patient is a 62-year-old gentleman who has had a several year history of progressively worsening right shoulder pain and weakness. Ultimately, an MRI revealed a full-thickness supraspinatus tear. He had tried rest, activity modifications, anti-inflammatories without relief and due to functional impairment and failure to improve with conservative measures, the patient elected to proceed with surgical intervention. Examination under anesthesia revealed forward elevation of 170 degrees, external rotation of 85 degrees and internal rotation of 75 degrees. Arthroscopic findings demonstrated absence of the biceps anchor. There was, however, a labral flap at the attachment site, which was unstable. The remainder of the labrum was intact. The glenoid and humeral head demonstrated no significant chondral abnormalities. Subacromial space demonstrated sloping the anterolateral acromion. There was a 4 x 3 cm superior rotator cuff tear with retraction and atrophy. DESCRIPTION OF PROCEDURE: After risks and benefits of the procedure were discussed and questions were answered and informed consent was signed and placed on the chart, the operative site was confirmed in the preoperative holding area and initialed by surgeon. The patient was then transported to the operating room and after adequate levels of general endotracheal anesthetic were obtained, a timeout was called, confirming the operative site. The right upper extremity was prepped and draped in the usual sterile fashion. The shoulder joint was injected with 20 mL of fluid and standard posterior portal was placed. Under direct visualization, an anterior portal was created in the interval between the glenoid, humeral head and subscapularis. The labral stump was debrided with a shaver back to a stable edge. Scope was then redirected into the subacromial space. A lateral portal was created. Bursectomy was performed and acromion was planed to a flat type 1 acromion. The scope and instruments were removed. The lateral portal was then extended. The deltoid was split in line with its fibers, leaving it attached to the acromion. The rotator cuff tear was mobilized. Two corkscrew type anchors were placed and a modified Kameron-Nicolas repair was performed. The posterior leaf could be brought superiorly; however, there was marked atrophy anteriorly. Therefore, there remained approximately a centimeter and a half gap anterior superiorly. The repair was otherwise stable. The wound was copiously irrigated. The deltoid was repaired in a [id number] fashion using #2 FiberWire. The wound was further irrigated, 3-0 Vicryl was used to reapproximate the subcutaneous tissue and the skin was closed with 4-0 nylon in a running alternating horizontal mattress fashion. Incision was infiltrated with plain Marcaine. The shoulder joint was injected with Duramorph. A soft dressing and sling were applied and the patient was transferred to the recovery room awake and in stable condition. Job ID: [id number] DocumentID: [id number] Dictated Date: 08/09/2022 10:24:35 Embedded [employer] Engineer Date: 08/09/2022 15:38:00 Dictated By: HUY PACK MD
== END 2022-08-09 12:12 | disposition home or self-care (01) ==
LOC: SDC 07:45
PROVIDERS: ATTEND Orthopaedic Surgery
DX: M75.101 Unspecified rotator cuff tear or rupture of right shoulder, not specified as traumatic (principal); S43.431A Superior glenoid labrum lesion of right shoulder, initial encounter; G47.33 Obstructive sleep apnea (adult) (pediatric); E66.9 Obesity, unspecified; E11.42 Type 2 diabetes mellitus with diabetic polyneuropathy; I51.9 Heart disease, unspecified; I25.10 Atherosclerotic heart disease of native coronary artery without angina pectoris; F39 Unspecified mood [affective] disorder; F17.210 Nicotine dependence, cigarettes, uncomplicated; Z99.81 Dependence on supplemental oxygen; Z68.37 Body mass index [BMI] 37.0-37.9, adult; Z79.4 Long term (current) use of insulin; Z86.79 Personal history of other diseases of the circulatory system
CPT/HCPCS: 23412; 29822; 29826; 82947; 87081; C1713